=== PATIENT | female | born 1950 | race Caucasian/White ===

== ENCOUNTER 2016-12-13 10:35 | Outpatient (CLI) | payer MEDICARE, OTHER | END 2016-12-13 10:36 | disposition home or self-care (01) | DX: I10 Essential (primary) hypertension (principal); R73.9 Hyperglycemia, unspecified; K21.9 Gastro-esophageal reflux disease without esophagitis ==

== ENCOUNTER 2017-03-14 13:08 | Outpatient (CLI) | payer MEDICARE, OTHER | END 2017-03-14 13:09 | disposition home or self-care (01) | DX: Z12.31 Encounter for screening mammogram for malignant neoplasm of breast (principal) ==

== ENCOUNTER 2017-11-27 08:00 | Outpatient (CLI) | payer MEDICARE, OTHER ==
[2017-11-27 19:23] LABS: ALBUMIN 4.1 g/dL (3.2-5.5); ALBUMIN/GLOBULIN RATIO 1.3 (1.0-2.2); BILIRUBIN,TOTAL 1.4 mg/dL (0.2-1.0); CALCIUM 9.5 mg/dL (8.5-10.3); CREATININE 1.2 mg/dL (0.4-1.0); TOTAL PROTEIN 7.3 g/dL (6.7-8.2)
[2017-11-27 19:39] LABS: HB2 TOTAL 15.9 g/dL; HEMOGLOBIN A1C 0.62 g/dL; HEMOGLOBIN A1C % 5.7 % (4.6-6.2)
== END 2017-11-27 08:01 | disposition home or self-care (01) ==
LOC: LAB.WCP 08:00
PROVIDERS: ATTEND Physician Assistant Medical
DX: R74.8 Abnormal levels of other serum enzymes (principal); R73.9 Hyperglycemia, unspecified
CPT/HCPCS: 36415; 80053; 83036

== ENCOUNTER 2018-06-10 13:54 | Outpatient (CLI) | payer MEDICARE, OTHER ==
--- NOTE | 2018-06-12 09:06 | Mammography Report ---
Procedure Date: 06/10/2018 Accession Number: [id number] / [id number] Procedure: HAILEE - Screening Mammo Dig Bilat CPT Code: FULL RESULT: EXAM: Screening Mammo Dig Bilat DATE: 06/10/2018 2:25 PM CLINICAL HISTORY: 67-year-old female with history of left breast biopsy with benign results in 2013. TECHNIQUE: Bilateral CC and MLO views were obtained. COMPARISON: 03/14/2017, 10/26/2015, 10/19/2014, 05/05/2014. FINDINGS: The breasts demonstrate heterogeneously dense fibroglandular parenchyma bilaterally. A biopsy marker is seen in the left breast. Typically benign coarse calcifications are identified bilaterally. No suspicious masses, clustered microcalcifications, or regions of architectural distortion are identified. IMPRESSION: Benign findings RECOMMENDATION: Routine annual screening unless otherwise clinically indicated. BIRADS CATEGORY 2: Benign findings STANDARD QUALIFYING STATEMENTS: 1. This examination was reviewed with the aid of Computer-Aided Detection (CAD). 2. A negative or benign imaging report should not delay biopsy if clinically suspicious findings are present. Consider surgical consultation if warrented. More than 5% of cancers are not identified by imaging. 3. Dense breasts may obscure an underlying neoplasm.
== END 2018-06-10 13:55 | disposition home or self-care (01) ==
LOC: DI 13:54
PROVIDERS: ATTEND Physician Assistant Medical
DX: Z12.31 Encounter for screening mammogram for malignant neoplasm of breast (principal)
CPT/HCPCS: 77067

== ENCOUNTER 2019-02-10 08:00 | Outpatient (CLI) | payer MEDICARE, OTHER | END 2019-02-10 23:59 | disposition home or self-care (01) | LOC: LAB.R 08:00 | PROVIDERS: ATTEND Family Medicine | DX: N39.0 Urinary tract infection, site not specified (principal) | CPT/HCPCS: 87086 ==

== ENCOUNTER 2020-05-20 08:00 | Outpatient (CLI) | payer MEDICARE, OTHER ==
[2020-05-20 18:34] LABS: BASOPHILS # (AUTO) 0.1 10^3/uL (0.0-0.1); BASOPHILS % (AUTO) 0.9 %; EOSINOPHILS # (AUTO) 0.2 10^3/uL (0.0-0.7); EOSINOPHILS % (AUTO) 2.9 %; HGB - HEMOGLOBIN 14.3 g/dL (12.0-16.0); LYMPHOCYTES # (AUTO) 2.5 10^3/uL (1.5-3.5); LYMPHOCYTES % (AUTO) 33.2 %; MEAN CORPUSCULAR HEMOGLOBIN 30.3 pg (27.0-31.0); MEAN CORPUSCULAR HGB CONC 32.6 g/dL (32.0-36.0); MEAN CORPUSCULAR VOLUME 92.8 fL (81.0-99.0); MEAN PLATELET VOLUME 10.2 fL (7.9-10.8); MONOCYTES # (AUTO) 0.6 10^3/uL (0.0-1.0); MONOCYTES % (AUTO) 8.2 %; NEUTROPHILS # (AUTO) 4.2 10^3/uL (1.5-6.6); NEUTROPHILS % (AUTO) 54.7 %; PLT - PLATELET COUNT 261 10^3/uL (130-450); RED BLOOD COUNT 4.72 10^6/uL (4.20-5.40); RED CELL DISTRIBUTION WIDTH 13.2 % (12.0-15.0); WHITE BLOOD COUNT 7.6 x10^3/uL (4.8-10.8)
[2020-05-20 18:38] LABS: ALBUMIN 4.1 g/dL (3.2-5.5); ALBUMIN/GLOBULIN RATIO 1.3 (1.0-2.2); ALKALINE PHOSPHATASE 84 IU/L (42-121); ALT ALANINE AMINOTRANSFERASE 51 IU/L (10-60); AST ASPARTATE AMINOTRANSFERASE 43 IU/L (10-42); BILIRUBIN,TOTAL 1.1 mg/dL (0.2-1.0); BUN - BLOOD UREA NITROGEN 19 mg/dL (6-20); CALCIUM 9.5 mg/dL (8.5-10.3); CARBON DIOXIDE - CO2 32 mmol/L (21-32); CHLORIDE 97 mmol/L (101-111); CHOL/HDL RATIO 3.3 (<4.4); CHOLESTEROL 185 mg/dL; CREATININE 1.1 mg/dL (0.4-1.0); GLUCOSE 166 mg/dL (70-100); HDL CHOLESTEROL 56 mg/dL; LDL CHOLESTEROL,CALCULATED 86 mg/dL; LDL/HDL RATIO 1.5 (<4.4); SODIUM 140 mmol/L (135-145); TOTAL PROTEIN 7.2 g/dL (6.7-8.2); VLDL CHOLESTEROL 43 mg/dL
[2020-05-24 16:15] LABS: HB2 TOTAL 15.2 g/dL; HEMOGLOBIN A1C 0.67 g/dL; HEMOGLOBIN A1C % 6.2 % (4.6-6.2)
== END 2020-05-20 23:59 | disposition home or self-care (01) ==
LOC: LAB.WCP 08:00
PROVIDERS: ATTEND Physician Assistant Medical
DX: E78.5 Hyperlipidemia, unspecified (principal); R73.9 Hyperglycemia, unspecified; I10 Essential (primary) hypertension
CPT/HCPCS: 36415; 80053; 80061; 83036; 83721; 84443; 85025

== ENCOUNTER 2020-08-04 09:13 | Outpatient (CLI) | payer MEDICARE, OTHER ==
[2020-08-04 11:50] LABS: CALCIUM 9.7 mg/dL (8.5-10.3); CREATININE 1.2 mg/dL (0.4-1.0)
[2020-08-04 12:24] LABS: HEMOGLOBIN A1c% 5.9 % (4.27-6.07)
== END 2020-08-04 09:14 | disposition home or self-care (01) ==
LOC: LAB.WCP 09:13
PROVIDERS: ATTEND Physician Assistant Medical
DX: N18.9 Chronic kidney disease, unspecified (principal); R73.9 Hyperglycemia, unspecified
CPT/HCPCS: 36415; 80048; 83036

== ENCOUNTER 2020-08-05 09:59 | Outpatient (CLI) | payer MEDICARE, OTHER ==
--- NOTE | 2020-08-06 05:17 | DEXA Report ---
PROCEDURE: Dexa Spine and/or Hip INDICATIONS: POST MENOPAUSAL TECHNIQUE: Dual energy x-ray absorptiometry (DXA) was performed on a [employer] System. Regions measur ed are the AP Spine, femoral neck, and if needed forearm. COMPARISON: None. FINDINGS: Lumbar Spine: Bone Mineral Density 1.354 g/cm/cm,T score 1.5, normal Left Hip: Bone Mineral Density 1.111 g/cm/cm,T score 0.8, normal Left Femoral Neck: Bone Mineral Density 1.050 g/cm/cm, T score 0.1, normal (T score greater or equal to -1.0: NORMAL) (T score from -1.1 to -2.4: OSTEOPENIA) (T score less than or equal to -2.5 to: OSTEOPOROSIS) Impression: Normal bone mineral density at the lumbosacral spine, left hip region, and left femoral n rosalee. Patients with diagnosis of osteoporosis or osteopenia should have regular bone mineral density assess ment. For those eligible for Medicare, routine testing is allowed once every 2 years. Testing frequ ency can be increased for patients who have rapidly progressing disease or for those who are receivin g medical therapy to restore bone mass. Reviewed by: Mookie Rosen MD on 08/05/2020 12:45 PM PDT Approved by: Mookie Rosen MD on 08/05/2020 12:45 PM PDT Station ID: [id number]
== END 2020-08-05 10:00 | disposition home or self-care (01) ==
LOC: DI 09:59
PROVIDERS: ATTEND Physician Assistant Medical
DX: Z78.0 Asymptomatic menopausal state (principal)
CPT/HCPCS: 77080

== ENCOUNTER 2020-08-05 10:02 | Outpatient (CLI) | payer MEDICARE, OTHER ==
--- NOTE | 2020-08-06 08:26 | Mammography Report ---
BILATERAL DIGITAL SCREENING MAMMOGRAM 3D/2D: 08/05/2020 CLINICAL: Routine screening. Comparison is made to exams dated: 06/10/2018 mammogram, 03/14/2017 mammogram, 10/26/2015 mammogram, mammogram, 05/05/2014 mammogram, and 11/04/2013 mammogram - Located within [facility]. The re are scattered fibroglandular elements in both breasts. No significant masses, calcifications, or other findings are seen in either breast. There has been no significant interval change. IMPRESSION: NEGATIVE There is no mammographic evidence of malignancy. A 1 year screening mammogram is recommended. This exam was interpreted at Station ID: [id number]. NOTE: For mammograms, a report in lay terms will be sent to the patient. Approximately 15% of breast malignancies will not be visualized mammographically. In the management of a palpable breast mass, a negative mammogram must not discourage biopsy of a clinically suspicious lesion. Electronically Signed By: Adeel Whitley M.D., jr/twila:08/05/2020 13:10:54 ACR BI-RADS Category 1: Negative 3341F PARENCHYMAL PATTERN: (A) - The breast(s) demonstrate(s) scattered fibroglandular densities. BI-RADS CATEGORY: (1) - 1 RECOMMENDATION: (ANNUAL) - Recommend routine annual screening mammography. [id number] 1 year screening LATERALITY: (B)
== END 2020-08-05 10:03 | disposition home or self-care (01) ==
LOC: DI 10:02
DX: Z12.31 Encounter for screening mammogram for malignant neoplasm of breast (principal)
CPT/HCPCS: 77063; 77067

== ENCOUNTER 2020-09-16 08:00 | Outpatient (CLI) | payer MEDICARE, OTHER ==
[2020-09-16 18:50] LABS: ALBUMIN 3.9 g/dL (3.2-5.5); ALBUMIN/GLOBULIN RATIO 1.3 (1.0-2.2); BILIRUBIN,TOTAL 1.6 mg/dL (0.2-1.0); CALCIUM 9.8 mg/dL (8.5-10.3)
[2020-09-16 20:04] LABS: HEMOGLOBIN A1c% 5.5 % (4.27-6.07)
== END 2020-09-16 23:59 | disposition home or self-care (01) ==
LOC: LAB.WCP 08:00
PROVIDERS: ATTEND Physician Assistant Medical
DX: R73.9 Hyperglycemia, unspecified (principal); G62.9 Polyneuropathy, unspecified
CPT/HCPCS: 36415; 80053; 82607; 83036

== ENCOUNTER 2021-03-25 08:00 | Outpatient (CLI) | payer MEDICARE, OTHER ==
[2021-03-25 13:13] LABS: ALBUMIN/GLOBULIN RATIO 1.4 (1.0-2.2); ALKALINE PHOSPHATASE 89 IU/L (42-121); ALT ALANINE AMINOTRANSFERASE 27 IU/L (10-60); AST ASPARTATE AMINOTRANSFERASE 24 IU/L (10-42); BUN - BLOOD UREA NITROGEN 14 mg/dL (6-20); CALCIUM 9.8 mg/dL (8.5-10.3); CARBON DIOXIDE - CO2 31 mmol/L (21-32); CHLORIDE 102 mmol/L (101-111); CHOL/HDL RATIO 3.3 (<4.4); CHOLESTEROL 172 mg/dL; CREATININE 0.9 mg/dL (0.4-1.0); GFR - MDRD 62 (>89); GLUCOSE 145 mg/dL (70-100); HDL CHOLESTEROL 52 mg/dL; LDL CHOLESTEROL,CALCULATED 96 mg/dL; LDL/HDL RATIO 1.8 (<4.4); POTASSIUM 4.1 mmol/L (3.5-5.0); SODIUM 144 mmol/L (135-145); TOTAL PROTEIN 6.8 g/dL (6.7-8.2); TRIGLYCERIDES 120 mg/dL; VLDL CHOLESTEROL 24 mg/dL
[2021-03-25 13:35] LABS: ESTIMATED AVERAGE GLUCOSE 123 mg/dL (70-100); HEMOGLOBIN A1c% 5.9 % (4.27-6.07)
== END 2021-03-25 23:59 | disposition home or self-care (01) ==
LOC: LAB.WCP 08:00
PROVIDERS: ATTEND Physician Assistant Medical
DX: R73.9 Hyperglycemia, unspecified (principal); I10 Essential (primary) hypertension
CPT/HCPCS: 36415; 80053; 80061; 83036; 83721

== ENCOUNTER 2021-05-19 10:20 | Outpatient (CLI) | payer MEDICARE, OTHER ==
[2021-05-19 17:51] LABS: BASOPHILS # (AUTO) 0.1 10^3/uL (0.0-0.1); BASOPHILS % (AUTO) 0.5 %; EOSINOPHILS # (AUTO) 0.2 10^3/uL (0.0-0.7); EOSINOPHILS % (AUTO) 2.2 %; HGB - HEMOGLOBIN 14.7 g/dL (12.0-16.0); LYMPHOCYTES # (AUTO) 3.2 10^3/uL (1.5-3.5); LYMPHOCYTES % (AUTO) 32.7 %; MEAN CORPUSCULAR HGB CONC 33.4 g/dL (32.0-36.0); MEAN CORPUSCULAR VOLUME 92.8 fL (81.0-99.0); MEAN PLATELET VOLUME 10.5 fL (7.9-10.8); MONOCYTES # (AUTO) 1.1 10^3/uL (0.0-1.0); NEUTROPHILS # (AUTO) 5.2 10^3/uL (1.5-6.6); NEUTROPHILS % (AUTO) 53.2 %; PLT - PLATELET COUNT 308 10^3/uL (130-450); RED BLOOD COUNT 4.74 10^6/uL (4.20-5.40); RED CELL DISTRIBUTION WIDTH 12.5 % (12.0-15.0); WHITE BLOOD COUNT 9.7 x10^3/uL (4.8-10.8)
[2021-05-21 16:36] LABS: ALPHA 1 GLOBULIN 0.4 g/dL (0.2-0.3); ALPHA 2 GLOBULIN 0.9 g/dL (0.5-0.9); BETA 1 GLOBULIN 0.4 g/dL (0.4-0.6); BETA 2 GLOBULIN 0.4 g/dL (0.2-0.5); GAMMA GLOBULIN 0.8 g/dL (0.8-1.7)
== END 2021-05-19 10:21 | disposition home or self-care (01) ==
LOC: LAB.N 10:20
PROVIDERS: ATTEND Physician Assistant Medical
DX: G62.9 Polyneuropathy, unspecified (principal); M54.12 Radiculopathy, cervical region
CPT/HCPCS: 36415; 82607; 84155; 84165; 85025; 85651; 86140

== ENCOUNTER 2021-05-19 10:24 | Outpatient (CLI) | payer MEDICARE, OTHER ==
--- NOTE | 2021-05-19 12:27 | XRAY Report ---
PROCEDURE: Chest 2 View X-Ray INDICATIONS: CHEST DISCOMFORT, ATYPICAL TECHNIQUE: 2 view(s) of the chest. COMPARISON: None. FINDINGS: Surgical changes and devices: None. Lungs and pleura: No pleural effusions or pneumothorax. Lungs are clear. Mediastinum: Mediastinal contours are normal. Heart size is normal. Bones and chest wall: No suspicious bony abnormalities. Soft tissues appear unremarkable. IMPRESSION: No acute pulmonary process. Reviewed by: Josefa Maher MD on 05/19/2021 12:26 PM PDT Approved by: Josefa Maher MD on 05/19/2021 12:26 PM PDT Station ID: [id number]
--- NOTE | 2021-05-19 15:02 | XRAY Report ---
PROCEDURE: Cervical Spine 2 View INDICATIONS: CERVICAL RADICULITIS TECHNIQUE: 3 view(s) of the cervical spine were acquired. COMPARISON: Chest radiographs dated same day. FINDINGS: No fracture identified. Scattered multilevel endplate spurring and diffuse facet arthropathy. Mild/moderate narrowing of the C6-C7 disc space. Soft tissues unremarkable. There is opacification seen in the right apex however this is much less co nspicuous on a chest radiograph dated same day IMPRESSION: Mild to moderate C6-C7 spondylosis and diffuse facet arthropathy. Incidentally noted right apical opacity. This appears much less conspicuous on the comparison chest r adiograph dated same day and could be projectional artifact however recommend continued radiographic surveillance with serial chest radiographs to document long-term stability, or if clinical suspicion dictates, CT chest could be performed to exclude apical mass. Reviewed by: Jesus Vegas MD on 05/19/2021 3:01 PM PDT Approved by: Jesus Vegas MD on 05/19/2021 3:01 PM PDT Station ID: [id number]
== END 2021-05-19 10:25 | disposition home or self-care (01) ==
LOC: DI.N 10:24
PROVIDERS: ATTEND Physician Assistant Medical
DX: R07.89 Other chest pain (principal); R91.8 Other nonspecific abnormal finding of lung field; M47.22 Other spondylosis with radiculopathy, cervical region; G62.9 Polyneuropathy, unspecified
CPT/HCPCS: 36415; 82607; 84155; 84165; 85025; 85651; 86140

== ENCOUNTER 2021-05-20 08:00 | Outpatient (CLI) | payer MEDICARE, OTHER | END 2021-05-20 23:59 | disposition home or self-care (01) | LOC: LAB.N 08:00 | PROVIDERS: ATTEND Family Medicine | DX: R31.9 Hematuria, unspecified (principal) | CPT/HCPCS: 87086 ==

== ENCOUNTER 2021-05-26 10:59 | Emergency (ER) | payer MEDICARE, OTHER ==
[2021-05-26 11:22] LABS: BASOPHILS # (AUTO) 0.1 10^3/uL (0.0-0.1); BASOPHILS % (AUTO) 0.6 %; EOSINOPHILS # (AUTO) 0.2 10^3/uL (0.0-0.7); EOSINOPHILS % (AUTO) 1.8 %; HCT - HEMATOCRIT 45.3 % (37.0-47.0); HGB - HEMOGLOBIN 15.4 g/dL (12.0-16.0); LYMPHOCYTES # (AUTO) 3.6 10^3/uL (1.5-3.5); LYMPHOCYTES % (AUTO) 28.8 %; MEAN CORPUSCULAR HEMOGLOBIN 31.3 pg (27.0-31.0); MEAN CORPUSCULAR VOLUME 92.1 fL (81.0-99.0); MEAN PLATELET VOLUME 9.6 fL (7.9-10.8); MONOCYTES # (AUTO) 1.3 10^3/uL (0.0-1.0); MONOCYTES % (AUTO) 10.4 %; NEUTROPHILS # (AUTO) 7.2 10^3/uL (1.5-6.6); NEUTROPHILS % (AUTO) 57.8 %; PLT - PLATELET COUNT 302 10^3/uL (130-450); RED BLOOD COUNT 4.92 10^6/uL (4.20-5.40); RED CELL DISTRIBUTION WIDTH 12.1 % (12.0-15.0); WHITE BLOOD COUNT 12.5 x10^3/uL (4.8-10.8)
--- NOTE | 2021-05-26 11:34 | ED Physician Documentation ---
PD HPI CHEST PAIN - Stated complaint Stated Complaint: CHEST PX - Chief complaint Chief Complaint: Cardiac - History obtained from History obtained from: Patient, Family - History of Present Illness Timing - onset: How many weeks ago (3) Timing - onset during: Rest Timing - duration: Weeks (3) Timing - details: Gradual onset, Still present Quality: Pressure, Sharp, Other (burning) Location: Substernal, Right chest Radiation: Neck, Back, Left upper extremity, Right upper extremity Improved by: Nothing Worsened by: Exertion. No: Inspiration, Palpation Associated symptoms: Shortness of air. No: Diaphoresis, Nausea, Vomiting, Feeling faint / dizzy, General Weakness, Palpitations, Cough Similar symptoms before: Has not had sx before Recently seen: Clinic - Additional information Additional information: 70-year-old female relates that about 3 weeks ago she began to get some burning- like sensation in the center of her chest radiating up to her neck. She relates that she has developed some tendinitis in her right wrist over the past 2-3 months. She underwent physical therapy and a cortisone injection for this prior to the development of these symptoms. She has been seen in the clinic a chest x- ray was done as well as an x-ray of her neck and she has been referred for a CT scan for an opacity found in the apex of the right side.The patient has developed increasing symptoms of pain radiating across her shoulders and down the left arm as well some weakness bilaterally. She is really had to reduce the amount that she is doing at home. Review of Systems Constitutional: denies: Fever Eyes: denies: Decreased vision Ears: denies: Ear pain Nose: denies: Congestion Throat: denies: Sore throat Cardiac: reports: Chest pain / pressure. denies: Palpitations, Pedal edema, Calf pain Respiratory: denies: Dyspnea, Cough, Wheezing GI: denies: Abdominal Pain, Nausea, Vomiting : denies: Dysuria, Frequency PD PAST MEDICAL HISTORY - Past Medical History Cardiovascular: Hypertension, High cholesterol GI: GERD - Past Surgical History Past Surgical History: Yes General: Cholecystectomy Ortho: Other /RN TESTING: Tubal ligation - Present Medications Home Medications: Ambulatory Orders Medication Instructions Recorded Confirmed Atenolol [Tenormin] 1 tab PO DAILY 05/17/14 05/26/21 Calcium Carbonate/Vitamin D3 1 tab PO DAILY 05/17/14 05/26/21 [Caltrate 600 + D Tablet] Gabapentin 600 mg PO DAILY 05/17/14 05/26/21 Multivitamin [Multi Vitamin Daily] 1 tab PO DAILY 05/17/14 05/26/21 Oxybutynin Chloride [Ditropan Xl] 1 tab PO DAILY 05/17/14 05/17/14 Potassium Chloride 1 tab PO BID 05/17/14 05/26/21 metOLazone [Metolazone] 1 mg PO DAILY 05/17/14 05/26/21 Cyanocobalamin (Vitamin B-12) 0 mcg PO DAILY 05/26/21 05/26/21 [Vitamin B-12] Famotidine [Pepcid] 20 mg PO DAILY 05/26/21 05/26/21 HYDROcod/ACETAM 5/325 [Ventura 5/325] 1 - 2 tablet PO Q6H PRN #14 tablet 05/26/21 - Allergies Allergies/Adverse Reactions: Allergies Allergy/AdvReac Type Severity Reaction Status Date / Time chlorhexidine Allergy Intermediate Rash Verified 05/26/21 11:09 - Social History Does the pt smoke?: No Smoking Status: Never smoker Does the pt drink ETOH?: No Does the pt have substance abuse?: No - Immunizations Immunizations are current?: Yes PD ED PE NORMAL - Vitals Vital signs reviewed: Yes (hypetension) - General General: Alert and oriented X 3, No acute distress, Well developed/nourished, Other (70-year-old female appears otherwise well but requires assistance to sit up in bed.) - HEENT HEENT: Atraumatic, PERRL, EOMI - Neck Neck: Supple, no meningeal sign, No bony TTP - Cardiac Cardiac: RRR, No murmur - Respiratory Respiratory: No respiratory distress, Clear bilaterally - Abdomen Abdomen: Normal bowel sounds, Soft, Non tender, Non distended, No organomegaly - Back Back: No CVA TTP, No spinal TTP - Derm Derm: Normal color, Warm and dry, No rash - Extremities Extremities: No deformity, No edema - Neuro Neuro: Alert and oriented X 3, creative arts therapist 2-12 intact, No motor deficit, No sensory deficit, Normal speech Eye Opening: Spontaneous Motor: Obeys Commands Verbal: Oriented GCS Score: 15 - Psych Psych: Normal mood, Normal affect Results - Vitals Vitals: Vital Signs - 24 hr 05/26/21 05/26/21 05/26/21 11:06 11:19 11:30 Temperature 36.0 C L Heart Rate 75 75 70 Respiratory 16 16 12 Rate Blood Pressure 144/81 H 148/88 H 144/87 H O2 Saturation 98 98 97 05/26/21 05/26/21 05/26/21 12:00 12:30 13:00 Temperature Heart Rate 71 76 78 Respiratory 18 16 17 Rate Blood Pressure 145/96 H 145/80 H 148/80 H O2 Saturation 98 97 99 05/26/21 05/26/21 05/26/21 13:30 14:00 14:30 Temperature Heart Rate 79 80 78 Respiratory 12 15 12 Rate Blood Pressure 160/85 H 138/67 H 148/80 H O2 Saturation 96 98 99 05/26/21 15:00 Temperature Heart Rate 78 Respiratory 16 Rate Blood Pressure 138/76 H O2 Saturation 98 Oxygen O2 Source Room air - EKG (time done) 1109 Rate: Rate (enter#) (72) Rhythm: NSR QRS: Low voltage Ischemia: Normal ST segments Compare to prior EKG: Old EKG unavailable Computer interpretation: Agree with computer - Labs Labs: Laboratory Tests 05/26/21 05/26/21 05/26/21 11:15 11:15 11:15 WBC 12.5 H RBC 4.92 Hgb 15.4 Hct 45.3 MCV 92.1 MCH 31.3 H MCHC 34.0 RDW 12.1 Plt Count 302 MPV 9.6 Neut # (Auto) 7.2 H Lymph # (Auto) 3.6 H Finney # (Auto) 1.3 H Eos # (Auto) 0.2 Baso # (Auto) 0.1 Absolute Nucleated RBC 0.00 Nucleated RBC % 0.0 Sodium 139 Potassium 3.9 Chloride 94 L Carbon Dioxide 32 Anion Gap 13.0 BUN 18 Creatinine 0.8 Estimated GFR (MDRD) 71 L Glucose 160 H Calcium 12.6 H* Total Bilirubin 1.5 H AST 33 ALT 27 Alkaline Phosphatase 120 Troponin I High Sens 4.4 Total Protein 7.7 Albumin 4.5 Globulin 3.2 Albumin/Globulin Ratio 1.4 Lipase 29 TSH PTH Intact 05/26/21 05/26/21 11:15 11:15 WBC RBC Hgb Hct MCV MCH MCHC RDW Plt Count MPV Neut # (Auto) Lymph # (Auto) Finney # (Auto) Eos # (Auto) Baso # (Auto) Absolute Nucleated RBC Nucleated RBC % Sodium Potassium Chloride Carbon Dioxide Anion Gap BUN Creatinine Estimated GFR (MDRD) Glucose Calcium Total Bilirubin AST ALT Alkaline Phosphatase Troponin I High Sens Total Protein Albumin Globulin Albumin/Globulin Ratio Lipase TSH 2.58 PTH Intact 26 - Rads (name of study) chest Radiology: Prelim report reviewed (Impression: No acute cardiopulmonary process demonstrated radiographically.), EMP read indepedently (I am able to see this mass in the right apex on the plain chest.), See rad report CT chest w Radiology: Prelim report reviewed (Impression: There are 3 hyperenhancing lesions with associated osteolytic change, involving the right and left chest. The lower neck is also involved. The largest lesion represents a Pancoast tumor at the medial right lung apex, with rib and spine malignant erosions, ), Final report received (, and early an entrance into the right neuroforamen immediately adjacent. Short-term terminal extension into the epidural space would be exp ected.), See rad report (more details on additional tumors on the left side. ) PD MEDICAL DECISION MAKING - ED course Complexity details: reviewed old records, reviewed results, re-evaluated patient, considered differential, d/w patient, d/w family ED course: 70-year-old female with a burning-like sensation in her chest has radicular symptoms and she has the appearance of a Pancoast tumor on the right apex she has additional tumor on the left in the neck and on a rib both with bony invasion. She has aggressive appearing findings and will need further work up and treatment. Her PMD is consulted in the case and will assist the patient in referral to a medical oncologist -- DWIGHT---. 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
--- NOTE | 2021-05-26 11:42 | XRAY Report ---
PROCEDURE: Chest 1 View X-Ray INDICATIONS: Chest pain TECHNIQUE: One view of the chest was acquired. COMPARISON: 05/19/2021 FINDINGS: Surgical changes and devices: None. Lungs and pleura: No pleural effusions or pneumothorax. Lungs are clear. Mediastinum: Mediastinal contours appear normal. Heart size is normal. Bones and chest wall: No suspicious bony lesions. Overlying soft tissues appear unremarkable. IMPRESSION: No acute cardiopulmonary process demonstrated radiographically. Reviewed by: Adeel Whitley MD on 05/26/2021 11:40 AM PDT Approved by: Adele Whitley MD on 05/26/2021 11:40 AM PDT Station ID: [id number]
[2021-05-26 11:45] LABS: ALBUMIN 4.5 g/dL (3.2-5.5); ALBUMIN/GLOBULIN RATIO 1.4 (1.0-2.2); BILIRUBIN,TOTAL 1.5 mg/dL (0.2-1.0); CREATININE 0.8 mg/dL (0.4-1.0); POTASSIUM 3.9 mmol/L (3.5-5.0); TOTAL PROTEIN 7.7 g/dL (6.7-8.2)
[2021-05-26 11:46] LABS: CALCIUM 12.6 mg/dL (8.5-10.3)
[2021-05-26] MEDS ORDERED: SODIUM CHLORIDE 0.9% 1,000 ML IV STA (11:47)
[2021-05-26] MEDS ORDERED: IOVERSOL 320 100 ML VIAL IVP ONE ×2 (12:34→17:10)
[2021-05-26] MEDS ORDERED: DEXAMETHASONE 10 MG/ML VIAL IVP STA (12:37)
[2021-05-26] MEDS ORDERED: diphenhydrAMINE INJ 50 MG/ML VIAL IVP STA (12:37)
--- NOTE | 2021-05-26 15:04 | CT Report ---
PROCEDURE: CHEST W INDICATIONS: mass in right appex, chest pain CONTRAST: IV CONTRAST: Optiray 320 ml: 100 PO CONTRAST: *NO PO CONTRAST TECHNIQUE: After the administration of intravenous contrast, 5 mm thick sections acquired from the pulmonary api morales to the posterior costophrenic angles. 7 mm thick coronal MIP reformats were acquired. For radia tion dose reduction, the following was used: automated exposure control, adjustment of mA and/or kV according to patient size. COMPARISON: None. FINDINGS: Image quality: Excellent. Lungs and pleura: No acute air space opacities. No pleural effusions or pneumothorax. Central and peripheral airways are patent and normal in caliber. Note is made of a lung mass at the right apex m edially, which is hyperenhancing and measures up to 4.6 x 3.6 cm, eroding into the adjacent cervical thoracic vertebral body and slightly into the right anterolateral spinal canal. This appears to parti ally erode and adjacent rib, likely the second rib, on the right. There is also a 2.1 x 4.1 cm osteol ytic mass that is hyperenhancing to the same degree at the left neural foramen of what likely is T7, with tumor extending into the anterior epidural space in that area producing moderate spinal stenosis . The tumor extends almost to the right neural foramen and widens the left neural foramen. More inferiorly at the mid chest level, CT series 4 image 148, there is an osteolytic lesion involvin g the medial left rib in that area, and the mass also is hyperenhancing and measures up to 4.2 x 2.9 cm. It does not currently appear to enter the epidural space. Mediastinum: Heart size is normal. No pericardial effusion. No mediastinal or hilar adenopathy by size criteria. Thoracic aorta and central pulmonary arteries are normal in size. Esophagus is tomy l in caliber. No hiatal hernia. Bones and chest wall: No suspicious bony lesions. No vertebral body compression fractures. No axil padmini or supraclavicular adenopathy by size criteria. The thyroid is normal in size and there are no incidental findings.. Abdomen: Visualized upper abdominal solid organs appear normal. Upper abdominal bowel loops are nor mal in caliber. Prior cholecystectomy. IMPRESSION: There are 3 hyperenhancing lesions with associated osteolytic change, involving the right and left ch est. The low neck also is involved. The largest lesion represents a Pancoast tumor at the medial righ t lung apex, with rib and spine malignant erosions, and early entrance into the right neural foramen immediately adjacent. Short-term tumor extension into the epidural space would be expected. The second lesion is located at the low left neck, with definite tumor invasion into the anterior epi dural space. Moderate spinal stenosis is associated, as a result. The third lesion is at the medial border of a left mid chest rib also with tumor erosion of the rib i n that area but without current tumor invasion into the epidural space. MR scanning likely is warranted after obtaining nuclear medicine bone scan to accurately assess for d egree of spinal canal compromise and to assist in radiation therapy planning. Within the visualized portion of the upper abdomen a primary or metastatic lesion is not seen. Nuclea eGifter medicine PET/CT scanning may be warranted to assist in staging purposes. Note: Findings immediately called to the emergency room physician caring for this patient, at time of this dictation. Reviewed by: Mookie Rosen MD on 05/26/2021 3:03 PM PDT Approved by: Mookie Rosen MD on 05/26/2021 3:03 PM PDT Station ID: [id number]
[2021-05-26] MEDS ORDERED: KETOROLAC 30 MG/ML VIAL IVP STA (15:16)
[2021-05-26 15:42] VITALS: BP 146/80
== END 2021-05-26 15:51 | disposition home or self-care (01) ==
LOC: ED 10:59
DX: C34.11 Malignant neoplasm of upper lobe, right bronchus or lung (principal); C79.51 Secondary malignant neoplasm of bone; C79.89 Secondary malignant neoplasm of other specified sites; M48.02 Spinal stenosis, cervical region; I10 Essential (primary) hypertension
CPT/HCPCS: 36415; 71045; 71260; 80053; 83690; 83970; 84443; 84484; 85025; 93005; 96361; 96374; 96375; 99284; J1200; Q9967; 83519

== ENCOUNTER 2021-09-22 10:24 | Outpatient (CLI) | payer MEDICARE, OTHER ==
[2021-09-22 18:30] LABS: ALBUMIN 3.4 g/dL (3.2-5.5); ALBUMIN/GLOBULIN RATIO 1.6 (1.0-2.2); ALKALINE PHOSPHATASE 72 IU/L (42-121); ALT ALANINE AMINOTRANSFERASE 49 IU/L (10-60); AST ASPARTATE AMINOTRANSFERASE 23 IU/L (10-42); BILIRUBIN,TOTAL 1.4 mg/dL (0.2-1.0); BUN - BLOOD UREA NITROGEN 14 mg/dL (6-20); CALCIUM 8.8 mg/dL (8.5-10.3); CARBON DIOXIDE - CO2 28 mmol/L (21-32); CHLORIDE 103 mmol/L (101-111); CHOL/HDL RATIO 4.8 (<4.4); CHOLESTEROL 232 mg/dL; CREATININE 0.8 mg/dL (0.4-1.0); GFR - MDRD 71 (>89); GLUCOSE 106 mg/dL (70-100); HDL CHOLESTEROL 48 mg/dL; LDL CHOLESTEROL,CALCULATED 126 mg/dL; LDL/HDL RATIO 2.6 (<4.4); POTASSIUM 3.5 mmol/L (3.5-5.0); SODIUM 141 mmol/L (135-145); TOTAL PROTEIN 5.5 g/dL (6.7-8.2); TRIGLYCERIDES 289 mg/dL; VLDL CHOLESTEROL 58 mg/dL
[2021-09-22 20:13] LABS: ESTIMATED AVERAGE GLUCOSE 97 mg/dL (70-100)
== END 2021-09-22 23:59 | disposition home or self-care (01) ==
LOC: LAB.WCP 10:24
PROVIDERS: ATTEND Physician Assistant Medical
DX: E78.5 Hyperlipidemia, unspecified (principal); R73.9 Hyperglycemia, unspecified
CPT/HCPCS: 36415; 80053; 80061; 83036; 83721

== ENCOUNTER 2022-03-02 12:27 | Outpatient (CLI) | payer MEDICARE, OTHER ==
--- NOTE | 2022-03-06 16:37 | Mammography Report ---
BILATERAL DIGITAL SCREENING MAMMOGRAM 3D/2D: 03/02/2022 CLINICAL: Routine screening. Comparison is made to exams dated: 08/05/2020 mammogram, 06/10/2018 mammogram, 03/14/2017 mammogram, an d 10/26/2015 mammogram - [facility]. There are scattered fibroglandular elements in both breasts. There are benign calcifications in the left breast. There also is a biopsy clip in the left breast. No significant masses, calcifications, or other findings are seen in either breast. There has been no significant interval change. IMPRESSION: BENIGN There is no mammographic evidence of malignancy. A 1 year screening mammogram is recommended. This exam was interpreted at Station ID: [id number]. NOTE: For mammograms, a report in lay terms will be sent to the patient. Approximately 15% of breast malignancies will not be visualized mammographically. In the management of a palpable breast mass, a negative mammogram must not discourage biopsy of a clinically suspicious lesion. Electronically Signed By: Isha yanez/twila:03/02/2022 16:12:45 ACR BI-RADS Category 2: Benign Finding(s) 3342F PARENCHYMAL PATTERN: (A) - The breast(s) demonstrate(s) scattered fibroglandular densities. BI-RADS CATEGORY: (2) - 2 RECOMMENDATION: (ANNUAL) - Recommend routine annual screening mammography. [id number] 1 year screening LATERALITY: (B)
== END 2022-03-02 12:28 | disposition home or self-care (01) ==
LOC: DI.N 12:27
DX: Z12.31 Encounter for screening mammogram for malignant neoplasm of breast (principal)

== ENCOUNTER 2022-03-21 11:54 | Outpatient (CLI) | payer MEDICARE, OTHER ==
[2022-03-21 18:37] LABS: BASOPHILS # (AUTO) 0.1 10^3/uL (0.0-0.1); BASOPHILS % (AUTO) 3.1 %; EOSINOPHILS # (AUTO) 0.6 10^3/uL (0.0-0.7); HCT - HEMATOCRIT 41.8 % (37.0-47.0); HGB - HEMOGLOBIN 13.8 g/dL (12.0-16.0); LYMPHOCYTES % (AUTO) 29.4 %; MEAN CORPUSCULAR HEMOGLOBIN 31.4 pg (27.0-31.0); MEAN PLATELET VOLUME 12.1 fL (7.9-10.8); MONOCYTES # (AUTO) 0.4 10^3/uL (0.0-1.0); MONOCYTES % (AUTO) 11.5 %; NEUTROPHILS # (AUTO) 1.3 10^3/uL (1.5-6.6); NEUTROPHILS % (AUTO) 38.7 %; PLT - PLATELET COUNT 156 10^3/uL (130-450); RED CELL DISTRIBUTION WIDTH 14.1 % (12.0-15.0); WHITE BLOOD COUNT 3.2 x10^3/uL (4.8-10.8)
[2022-03-21 18:42] LABS: ALBUMIN 3.5 g/dL (3.2-5.5); ALBUMIN/GLOBULIN RATIO 1.2 (1.0-2.2); ALKALINE PHOSPHATASE 79 IU/L (42-121); ALT ALANINE AMINOTRANSFERASE 30 IU/L (10-60); AST ASPARTATE AMINOTRANSFERASE 31 IU/L (10-42); BILIRUBIN,TOTAL 1.4 mg/dL (0.2-1.0); BUN - BLOOD UREA NITROGEN 11 mg/dL (6-20); CARBON DIOXIDE - CO2 29 mmol/L (21-32); CHLORIDE 105 mmol/L (101-111); CHOL/HDL RATIO 4.5 (<4.4); CHOLESTEROL 208 mg/dL; CREATININE 0.8 mg/dL (0.4-1.0); GFR - MDRD 71 (>89); GLUCOSE 117 mg/dL (70-100); HDL CHOLESTEROL 46 mg/dL; LDL CHOLESTEROL,CALCULATED 125 mg/dL; LDL/HDL RATIO 2.7 (<4.4); POTASSIUM 3.9 mmol/L (3.5-5.0); SODIUM 141 mmol/L (135-145); TOTAL PROTEIN 6.5 g/dL (6.7-8.2); TRIGLYCERIDES 184 mg/dL; VLDL CHOLESTEROL 37 mg/dL
[2022-03-21 18:51] LABS: THYROID STIMULATING HORMONE 2.06 uIU/mL (0.34-5.60)
[2022-03-21 18:56] LABS: CREATININE,URINE 98.7 mg/dL; MICROALBUM/CREATININE RATIO,UR 112.5 ug/mg (<30.0); MICROALBUMIN,URINE 11.1 mg/dL (0-300.0)
[2022-03-21 21:11] LABS: ESTIMATED AVERAGE GLUCOSE 88 mg/dL (70-100); HEMOGLOBIN A1c% 4.7 % (4.27-6.07)
== END 2022-03-21 11:55 | disposition home or self-care (01) ==
LOC: LAB.N 11:54
PROVIDERS: ATTEND Physician Assistant Medical
DX: I12.9 Hypertensive chronic kidney disease with stage 1 through stage 4 chronic kidney disease, or unspecified chronic kidney disease (principal); N18.31 Chronic kidney disease, stage 3a; E78.5 Hyperlipidemia, unspecified; R73.9 Hyperglycemia, unspecified; Z13.29 Encounter for screening for other suspected endocrine disorder
CPT/HCPCS: 36415; 80053; 80061; 82043; 82570; 83036; 83721; 84443; 85025

== ENCOUNTER 2022-11-20 12:44 | Outpatient (CLI) | payer MEDICARE, OTHER ==
--- NOTE | 2022-11-20 19:00 | XRAY Report ---
PROCEDURE: Chest 2 View X-Ray INDICATIONS: Pneumonia TECHNIQUE: 2 views of the chest were acquired. COMPARISON: 05/26/2021, chest radiograph and CT FINDINGS: Surgical changes and devices: A left-sided chest port is seen, the tip overlying the superior aspect of the superior vena cava, 6 cm above the cavoatrial junction. Cholecystectomy clips are seen. Lungs and pleura: No pleural effusions or pneumothorax. Lungs are clear, yet hyperexpanded. Mediastinum: Mediastinal contours are normal. Heart size is normal. Bones and chest wall: No suspicious bony abnormalities. Age-appropriate degenerative changes are see n. Soft tissues appear unremarkable. IMPRESSION: No focal infiltrates are seen. Postoperative and degenerative changes are seen. Reviewed by: Cam Grace MD on 11/20/2022 5:59 PM [facility] Approved by: Cam Grace MD on 11/20/2022 5:59 PM [facility] Station ID: [id number]
== END 2022-11-20 12:45 | disposition home or self-care (01) ==
LOC: DI 12:44
PROVIDERS: ATTEND Physician Assistant
DX: J18.9 Pneumonia, unspecified organism (principal); M19.09 Primary osteoarthritis, other specified site

== ENCOUNTER 2023-01-10 13:36 | Outpatient (CLI) | payer MEDICARE, OTHER ==
[2023-01-10 17:58] LABS: BILIRUBIN,URINE NEGATIVE (NEGATIVE); GLUCOSE, URINE (UA) NEGATIVE (NEGATIVE); KETONES,URINE (UA) NEGATIVE (NEGATIVE); LEUKOCYTE ESTERASE, URINE MODERATE (NEGATIVE); NITRITE,URINE NEGATIVE (NEGATIVE); OCCULT BLOOD,URINE SMALL (NEGATIVE); PH,URINE 5.5 PH (5.0-7.5); PROTEIN,URINE 30 mg/dL (NEGATIVE); UROBILINOGEN,URINE 0.2 (NORMAL) E.U./dL (NORMAL)
[2023-01-10 17:59] LABS: CLARITY,URINE CLOUDY (CLEAR)
[2023-01-10 18:08] LABS: BACTERIA,URINE Rare /HPF (None Seen); RBC,URINE 0-5 /HPF (0-5); SQUAMOUS EPITHELIAL CELL,UR RARE Squamous (<= Few); WBC,URINE >25 /HPF (0-5)
== END 2023-01-10 23:59 | disposition home or self-care (01) ==
LOC: LAB.WCP 13:36
PROVIDERS: ATTEND Physician Assistant
DX: N39.0 Urinary tract infection, site not specified (principal)
CPT/HCPCS: 81001; 87077; 87086; 87181

== ENCOUNTER 2023-10-29 09:26 | Emergency (ER) | payer MEDICARE, OTHER ==
[2023-10-29 09:45] VITALS: BP 129/75; O2SAT 96
--- NOTE | 2023-10-29 11:09 | ED Physician Documentation ---
PD HPI HEENT - Stated complaint Stated Complaint: CONGESTION,COUGH - Chief complaint Chief Complaint: Heent - History obtained from History obtained from: Patient - History of Present Illness Timing - onset: How many weeks ago (has had some congestion and feeling pressure sinuses, some runny nose, and has much inceased pain left maxxillary area the past 2 days, with pper left teeth pain, and some soft tissue tender lateral left cheek to preauricular area. No rash nor sores.) Timing - duration: Days Timing - details: Gradual onset, Still present Location: Sinuses (left maxillary) Associated symptoms: No: Fever, Trismus, Swollen nodes Similar symptoms before: Has not had sx before Review of Systems Constitutional: reports: Fever (last evening). denies: Chills Eyes: denies: Photophobia Ears: denies: Loss of hearing, Ear pain, Drainage/discharge Nose: reports: Rhinorrhea / runny nose, Sinus pressure / pain Throat: reports: Dental pain / toothache, Sore throat. denies: Oral lesions / sores Respiratory: denies: Dyspnea, Cough Skin: denies: Rash, Lesions PD PAST MEDICAL HISTORY - Past Medical History Cardiovascular: Hypertension, High cholesterol GI: GERD Other Past Medical History: multiple myeloma - Past Surgical History Past Surgical History: Yes General: Cholecystectomy Ortho: Other /PHP ENGINEER: Tubal ligation - Present Medications Home Medications: Ambulatory Orders Medication Instructions Recorded Confirmed Atenolol [Tenormin] 1 tab PO DAILY 05/17/14 05/26/21 Calcium Carbonate/Vitamin D3 1 tab PO DAILY 05/17/14 05/26/21 [Caltrate 600 + D Tablet] Gabapentin 600 mg PO DAILY 05/17/14 05/26/21 Multivitamin [Multi Vitamin Daily] 1 tab PO DAILY 05/17/14 05/26/21 Potassium Chloride 1 tab PO BID 05/17/14 05/26/21 metOLazone [Metolazone] 1 mg PO DAILY 05/17/14 05/26/21 oxyBUTYnin chloride [Ditropan Xl] 1 tab PO DAILY 05/17/14 05/17/14 Cyanocobalamin (Vitamin B-12) 0 mcg PO DAILY 05/26/21 05/26/21 [Vitamin B-12] Famotidine [Pepcid] 20 mg PO DAILY 05/26/21 05/26/21 HYDROcod/ACETAM 5/325 [[place] 5/325] 1 - 2 tablet PO Q6H PRN #14 tablet 05/26/21 Amoxicillin 500 mg PO TID #21 cap 10/29/23 Fluticasone [Flonase] 1 sprays JERICHO BID PRN #16 gm 10/29/23 HYDROcod/ACETAM 5/325 [[place] 5/325] 1 ea PO Q6H PRN #18 tablet 10/29/23 Valacyclovir HCl [Valtrex] 1,000 mg PO TID #15 tablet 10/29/23 - Allergies Allergies/Adverse Reactions: Allergies Allergy/AdvReac Type Severity Reaction Status Date / Time chlorhexidine Allergy Intermediate Rash Verified 05/26/21 11:09 - Social History Does the pt smoke?: No Smoking Status: Never smoker Does the pt drink ETOH?: No Does the pt have substance abuse?: No - Immunizations Immunizations are current?: Yes PD ED PE NORMAL - Vitals Vital signs reviewed: Yes - General General: Alert and oriented X 3, No acute distress, Well developed/nourished - HEENT HEENT: PERRL, EOMI, Ears normal, Moist mucous membranes, Pharynx benign, Dentition benign (no percussion tenderness of teeth. ) - Neck Neck: Supple, no meningeal sign, No adenopathy - Cardiac Cardiac: RRR, No murmur - Respiratory Respiratory: Clear bilaterally - Derm Derm: Normal color, Warm and dry, No rash Results - Vitals Vitals: Oxygen O2 Source Room air PD Medical Decision Making - ED course Complexity details: considered differential (left maxillary pain with teeth pain, and feeling of some skin tenderness left cheek back to preauricular area. No rash nor sores. Ear canal and dental area are not tender. Consider maxillary sinusitis highly prob, but could have early shingles component. ), d/w patient Departure - Departure Disposition: 01 Home, Self Care Clinical Impression: Acute facial pain Acute sinusitis Qualifiers: Sinusitis location: maxillary Recurrence: non-recurrent Qualified Code(s): J01.00 - Acute maxillary sinusitis, unspecified Condition: Stable Record reviewed to determine appropriate education?: Yes Instructions: ED Sinusitis Abx Tx Prescriptions: Amoxicillin 500 mg PO TID #21 cap Fluticasone [Flonase] 1 sprays JERICHO BID PRN #16 gm PRN Reason: Nasal Congestion HYDROcod/ACETAM 5/325 [[place] 5/325] 1 ea PO Q6H PRN #18 tablet PRN Reason: Pain Valacyclovir HCl [Valtrex] 1,000 mg PO TID #15 tablet Comments: Your symptoms do sound consistent with a sinus infection in the maxillary area. We can treat with amoxicillin 3 times daily for a week. Also to try to help open the sinus outlet, I would suggest fluticasone nasal spray particularly on that side twice daily for the next couple of weeks. You can continue with saline spray in there as well to decrease some of the congestion and open the sinus outflow. I am curious about the degree of sensitivity of the skin on the face and wonder if there is some nerve inflammation as well. There is no rash but still would consider the idea of a of viral or shingles like type process, in particular given your decreased immune system, its prudent to treat for this in case. I also wrote prescription for Anne acyclovir in addition to the amoxicillin antibiotic. Fluticasone nasal spray as well. Tylenol every 4-6 hours if needed for pain. Follow-up with your oncologist if not improving well over the next few days. I sent your prescriptions to your preferred pharmacy, [email or web address] in [place]. Additionally if you do run out of your usual pain medicines, I wrote for hydrocodone instead and see if they pharmacy would fill that in conjunction with your usual oxycodone since the usually will not fill the oxycodone early. Forms: PCP List Discharge Date/Time: 10/29/23 12:32
[2023-10-29] MEDS ORDERED: dexAMETHasone 4 MG TABLET PO STA (11:46)
[2023-10-29] MEDS ORDERED: AMOXICILLIN 250 MG CAPSULE PO STA (11:46)
[2023-10-29] MEDS ORDERED: ACETAMINOPHEN 325 MG TABLET PO STA (11:47)
[2023-10-29] MEDS ORDERED: ACYCLOVIR 200 MG CAPSULE PO STA (11:47)
== END 2023-10-29 12:32 | disposition home or self-care (01) ==
LOC: ED 09:26
DX: J01.00 Acute maxillary sinusitis, unspecified (principal); R51.9 Headache, unspecified; I10 Essential (primary) hypertension
CPT/HCPCS: 99282; 99283; A9270; J8540

== ENCOUNTER 2024-05-06 13:09 | Outpatient (CLI) | payer MEDICARE, OTHER ==
--- NOTE | 2024-05-06 16:22 | DEXA Report ---
PROCEDURE: Dexa Spine and/or Hip INDICATIONS: POST MENOPAUSAL TECHNIQUE: Dual energy x-ray absorptiometry (DXA) was performed on a Rheonix System. Regions measur ed are the AP Spine, femoral neck, and if needed forearm. COMPARISON: DEXA, 08/05/2020 FINDINGS: Lumbar Spine: Bone Mineral Density: 1.550 g/cm/cm,T score: 3.1. Normal. Left Femoral Neck: Bone Mineral Density: 1.023 g/cm/cm, T score: -0.1. Normal. Left Hip: Bone Mineral Density: 1.172 g/cm/cm,T score: 1.3. Normal. (T score greater or equal to -1.0: NORMAL) (T score from -1.1 to -2.4: OSTEOPENIA) (T score less than or equal to -2.5 to: OSTEOPOROSIS) Compared to last exam, the patient's bone mineral density in lumbar spine has increased by 14.5%. The patient's bone mineral density left hip has increased by 5.5%. Impression: By WHO criteria, this patient has normal bone mineral density. Compared to last exam, the patient's b one mineral densities in lumbar spine and left hip have increased. Patients with diagnosis of osteoporosis or osteopenia should have regular bone mineral density assess ment. For those eligible for Medicare, routine testing is allowed once every 2 years. Testing frequ ency can be increased for patients who have rapidly progressing disease or for those who are receivin g medical therapy to restore bone mass. Reviewed by: Pete Draper MD on 05/06/2024 4:21 PM PDT Approved by: Pete Draper MD on 05/06/2024 4:21 PM PDT Station ID: [id number]
== END 2024-05-06 13:10 | disposition home or self-care (01) ==
LOC: DI 13:09
PROVIDERS: ATTEND Physician Assistant Medical
DX: Z78.0 Asymptomatic menopausal state (principal)